=== PATIENT | male | born 1970 | race Caucasian/White ===

== ENCOUNTER 2018-01-20 11:52 | Emergency (ER) | payer MEDICAID, OTHER ==
[~2018-01-20] VITALS: Ht 177.8 cm; Wt 92.0 kg
[~2018-01-20 11:52] MED LIST: CITA40TA14 PO; RISP4 PO
[2018-01-20] MEDS ORDERED: CITA-106 PO (12:05)
[2018-01-20] MEDS ORDERED: BUPR100 PO (12:05)
[2018-01-20] MEDS ORDERED: ADDE10 PO (12:05)
[2018-01-20 12:13] VITALS: BP 147/98
[2018-01-20] MEDS ORDERED: KETOROLAC TROMETHAMINE 60 MG/2 ML VIAL IM ONE (12:45)
[2018-01-20] MEDS ORDERED: METHOCARBAMOL 500 MG TABLET PO ONE (12:45)
== END 2018-01-20 13:04 | disposition home or self-care (01) ==
LOC: EMS 11:53
DX: S46.911A Strain of unspecified muscle, fascia and tendon at shoulder and upper arm level, right arm, initial encounter (principal); R03.0 Elevated blood-pressure reading, without diagnosis of hypertension; F17.210 Nicotine dependence, cigarettes, uncomplicated; F14.90 Cocaine use, unspecified, uncomplicated; F15.90 Other stimulant use, unspecified, uncomplicated; G89.29 Other chronic pain; X58.XXXA Exposure to other specified factors, initial encounter; Y93.89 Activity, other specified; Y92.89 Other specified places as the place of occurrence of the external cause; Y99.8 Other external cause status
CPT/HCPCS: 96372; 99283; J1885